=== PATIENT | female | born 1985 ===

== ENCOUNTER 2017-10-07 08:58 | Emergency (ER) | payer MEDICAID ==
[2017-10-07 08:59] VITALS: BMI 30.2
[2017-10-07] MEDS ORDERED: Sodium Chloride 0.9% 1,000 ML IV ONE (09:37)
[2017-10-07] MEDS ORDERED: Sodium Chloride 0.9% 1,000 ML ONE (10:09)
--- NOTE | 2017-10-07 10:09 | C.PDOC ---
History Of Present Illness 32 y/o female with PMHx of Asthma presents to ED with complaints of abdominal pain since 2 am today with associated multiple episodes of vomiting. Patient denies fever, chills, diarrhea, back pain, dysuria, hematuria or any other complaints at this time. Time Seen by Provider: 10/07/17 09:20 Chief Complaint (Nursing): Abdominal Pain History Per: Patient History/Exam Limitations: no limitations Onset/Duration Of Symptoms: Hrs Current Symptoms Are (Timing): Still Present Past Medical History Reviewed: Historical Data, Nursing Documentation, Vital Signs Vital Signs: Last Vital Signs Temp 98.2 F 10/07/17 12:48 Pulse 79 10/07/17 12:48 Resp 16 10/07/17 12:48 BP 129/87 10/07/17 12:48 Pulse Ox 99 10/07/17 12:48 - Medical History PMH: Asthma, Gastritis, Migraine Surgical History: Endoscopy Family History: States: Diabetes, Hypertension - Social History Hx Tobacco Use: No Hx Alcohol Use: No Hx Substance Use: No - Immunization History Hx Tetanus Toxoid Vaccination: Yes Hx Influenza Vaccination: Yes Hx Pneumococcal Vaccination: Yes Review Of Systems Constitutional: Negative for: Fever, Chills Gastrointestinal: Positive for: Vomiting, Abdominal Pain. Negative for: Nausea , Diarrhea Genitourinary: Negative for: Dysuria, Hematuria Musculoskeletal: Negative for: Back Pain Skin: Negative for: Rash Neurological: Negative for: Weakness, Numbness Physical Exam - Physical Exam Appears: Non-toxic, No Acute Distress Skin: Normal Color, Warm, Dry, No Rash Head: Atraumatic, Normacephalic Eye(s): bilateral: Normal Inspection Oral Mucosa: Moist Neck: Supple Cardiovascular: Rhythm Regular Respiratory: Normal Breath Sounds, No Rales, No Rhonchi, No Wheezing Gastrointestinal/Abdominal: Soft, Tenderness (Epigastric), No Guarding, No Rebound Back: No CVA Tenderness Extremity: Normal ROM, Capillary Refill (<2 seconds) Neurological/Psych: Oriented x3 ED Course And Treatment - Laboratory Results Result Diagrams: 10/07/17 10:08 10/07/17 10:08 Lab Interpretation: Normal O2 Sat by Pulse Oximetry: 100 (RA) Pulse Ox Interpretation: Normal - CT Scan/US No standard instances Other Rad Studies (CT/US): Read By Radiologist, Radiology Report Reviewed CT/US Interpretation: FINDINGS: LIVER: Measures 14.5 cm in length. Echogenic liver may be seen in setting of hepatic parenchymal disease or fatty infiltration. No focal hepatic mass identified. The main portal vein appears patent with normal directional flow. No intrahepatic bile duct dilatation. GALLBLADDER: No gallstones. No gallbladder wall thickening or pericholecystic edema. Negative sonographic Faustin's sign as assessed by the glass forming crew member. COMMON BILE DUCT: Measures approximately 2 mm. PANCREAS: Not well- visualized. RIGHT KIDNEY: Measures 11.0 x 5.4 x 6.1 cm. No obstructing calculus or hydronephrosis identified. AORTA: Limited visualization appears grossly unremarkable. IVC: Limited visualization appears grossly unremarkable. OTHER FINDINGS: None . IMPRESSION: Echogenic liver may be seen in setting of hepatic parenchymal disease or fatty infiltration. Progress Note: Treated with IVF NSS, pepcid and zofran. On re-evaluation abdomen soft non-tender, feeling better, in no distress Reassessment Condition: Improved Medical Decision Making Medical Decision Making: Plan: Blood work, UA, Abdomen ultrasound, Zofran Disposition Counseled Patient/Family Regarding: Studies Performed, Diagnosis, Need For Followup, Rx Given - Disposition Referrals: [facility] [Outside] [facility] [Outside] Disposition: HOME/ ROUTINE Disposition Time: 12:30 Condition: STABLE Additional Instructions: Follow up with PMD or clinic for further evaluation Prescriptions: Famotidine [Pepcid AC] 20 mg PO BID #20 tablet Ondansetron ODT [Zofran ODT] 1 odt PO BID PRN #6 odt PRN Reason: Nausea/Vomiting Instructions: Acute Nausea and Vomiting (ED), Abdominal Pain (ED) Forms: [facility] (Portuguese), Work Excuse Print Language: PANAMANIAN - POA Present On Arrival: None - Clinical Impression Clinical Impression: Nausea & vomiting, Gastritis, Abdominal pain - PA / DIRECTOR OF RETAIL / Resident Statement MD/DO has reviewed & agrees with the documentation as recorded. - Scribe Statement The provider has reviewed the documentation as recorded by the John Paul All medical record entries made by the John were at my direction and personally dictated by me. I have reviewed the chart and agree that the record accurately reflects my personal performance of the history, physical exam, medical decision making, and the department course for this patient. I have also personally directed, reviewed, and agree with the discharge instructions and disposition.
[2017-10-07 10:16] LABS: BASO # 0.1 K/uL (0.0-0.2); BASO % 0.8 % (0.0-2.0); EOS # 0.1 K/uL (0.0-0.7); HEMATOCRIT 41.8 % (34.0-47.0); LYMPH # 1.6 K/uL (1.0-4.3); LYMPH % 24.5 % (20.0-40.0); MEAN CELL VOLUME 86.5 fL (81.0-99.0); MEAN CORPUSCULAR HEMOGLOBIN 29.5 pg (27.0-31.0); MEAN CORPUSCULAR HGB CONC 34.1 g/dL (33.0-37.0); MEAN PLATELET VOLUME 8.3 fL (7.2-11.7); MONO # 0.4 K/uL (0.0-0.8); MONO % 6.5 % (0.0-10.0); NRBC % 0.1 % (0.0-2.0); RED CELL DISTRIBUTION WIDTH 12.9 % (11.5-14.5); WHITE BLOOD COUNT 6.6 K/uL (4.8-10.8)
[2017-10-07 10:30] LABS: RBC URINE 9 /hpf (0-3); URINE BILIRUBIN NEGATIVE (NEGATIVE); URINE BLOOD 1+ (NEGATIVE); URINE COLOR Yellow (YELLOW); URINE GLUCOSE (UA) NORMAL (Normal); URINE KETONE NEGATIVE (NEGATIVE); URINE LEUKOCYTE ESTERASE NEG Leu/uL (Negative); URINE PROTEIN NEGATIVE (NEGATIVE); URINE UROBILINOGEN NORMAL mg/dL (0.2-1.0); WBC URINE 2 /hpf (0-5)
[2017-10-07 10:31] LABS: ALB/GLOB RATIO 1.5 (1.0-2.1); ALKALINE PHOSPHATASE 74 U/L (38-126); ALT/SGPT 41 U/L (9-52); AST/SGOT 25 U/L (14-36); BILIRUBIN,TOTAL 0.4 mg/dL (0.2-1.3); BLOOD UREA NITROGEN 9 mg/dL (7-17); CALCIUM 8.5 mg/dl (8.6-10.4); CARBON DIOXIDE 28 mmol/L (22-30); CHLORIDE 104 mmol/L (98-107); GFR AFRICAN-AMERICAN > 60; GLUCOSE,RANDOM 96 mg/dL (65-105); POTASSIUM 4.1 mmol/L (3.6-5.2); SODIUM 137 mmol/L (132-148); TOTAL PROTEIN 6.6 g/dL (6.3-8.3)
--- NOTE | 2017-10-07 11:49 | US ---
HISTORY: Pain RUQ COMPARISON: None available TECHNIQUE: Sonographic evaluation of the right upper quadrant of the abdomen. FINDINGS: LIVER: Measures 14.5 cm in length. Echogenic liver may be seen in setting of hepatic parenchymal disease or fatty infiltration. No focal hepatic mass identified. The main portal vein appears patent with normal directional flow. No intrahepatic bile duct dilatation. GALLBLADDER: No gallstones. No gallbladder wall thickening or pericholecystic edema. Negative sonographic Faustin's sign as assessed by the vice president pharmacy. COMMON BILE DUCT: Measures approximately 2 mm. PANCREAS: Not well-visualized. RIGHT KIDNEY: Measures 11.0 x 5.4 x 6.1 cm. No obstructing calculus or hydronephrosis identified. AORTA: Limited visualization appears grossly unremarkable. IVC: Limited visualization appears grossly unremarkable. OTHER FINDINGS: None . IMPRESSION: Echogenic liver may be seen in setting of hepatic parenchymal disease or fatty infiltration.
[2017-10-07 12:48] VITALS: BP 129/87; PULSE 79; RESP 16; TEMP 98.2
[2017-10-07 17:15] VITALS: O2SAT 100
== END 2017-10-07 13:04 | disposition home or self-care (01) ==
LOC: C.ER 08:58
DX: K29.70 Gastritis, unspecified, without bleeding (principal); R11.2 Nausea with vomiting, unspecified; R10.13 Epigastric pain
CPT/HCPCS: 76705; 80053; 81001; 83690; 84703; 85025; 96361; 96374; 96375; 99284; J2405; J7040

== ENCOUNTER 2018-06-26 15:43 | Emergency (ER) | payer SELFPAY ==
[2018-06-26 15:44] VITALS: BMI 30.2
[2018-06-26 15:52] VITALS: BP 132/74; PULSE 82; RESP 14; TEMP 98.7; O2SAT 99
[2018-06-26] MEDS ORDERED: Tmp-Smz 800 mg-160 mg DS Tab PO STA (16:10)
--- NOTE | 2018-06-26 16:10 | C.PDOC ---
History Of Present Illness 33-year-old female, presents to the emergency department with complaints of a painful pimple to the left side of her face for 5 days. Patient reports trying to pop the pimple 2 days ago and it started swelling up. Patient denies fever, headache, jaw or mouth pain, nausea/vomiting, or any other associated symptoms. Time Seen by Provider: 06/26/18 16:00 Chief Complaint (Nursing): Abnormal Skin Integrity History Per: Patient History/Exam Limitations: no limitations Onset/Duration Of Symptoms: Days Current Symptoms Are (Timing): Still Present Location Of Injury: Left: Face (cheek with pustule) Past Medical History Reviewed: Historical Data, Nursing Documentation, Vital Signs Vital Signs: Last Vital Signs Temp 98.7 F 06/26/18 15:51 Pulse 82 06/26/18 15:51 Resp 14 06/26/18 15:51 BP 132/74 06/26/18 15:51 Pulse Ox 99 06/26/18 17:24 - Medical History PMH: Asthma, Gastritis, Migraine Surgical History: Endoscopy, Tonsillectomy Family History: States: Diabetes, Hypertension - Social History Hx Tobacco Use: No Hx Alcohol Use: No Hx Substance Use: No - Immunization History Hx Tetanus Toxoid Vaccination: No Hx Influenza Vaccination: No Hx Pneumococcal Vaccination: No Review Of Systems Constitutional: Negative for: Fever, Chills Gastrointestinal: Negative for: Nausea, Vomiting Neurological: Negative for: Weakness, Numbness, Headache, Dizziness Physical Exam - Physical Exam Appears: Non-toxic, No Acute Distress Skin: Warm, Dry, No Rash, Other (Left cheek: 1cm tender, erythematous and indurated mass with central scab and no discharge) Head: Atraumatic, Normacephalic Eye(s): bilateral: Normal Inspection, EOMI Nose: Normal Oral Mucosa: Moist Lips: Normal Appearing Neck: Normal ROM Respiratory: No Decreased Breath Sounds, No Accessory Muscle Use Extremity: Normal ROM, No Deformity Neurological/Psych: Oriented x3, Normal Speech Gait: Steady ED Course And Treatment O2 Sat by Pulse Oximetry: 99 Pulse Ox Interpretation: Normal (RA) Medical Decision Making Medical Decision Making: Impression: pustule and developing abscess, not fluctuant or ready for I&D Plan: * Bactrim * Keflex Pt discharged with Rx for Bactrim and Keflex, instructed to apply warm compress to area and keep area clean. Follow up in few days for possible I&D Disposition - Disposition Disposition: HOME/ ROUTINE Disposition Time: 16:09 Condition: GOOD Additional Instructions: Apply warm compress to area Take antibiotics Follow up with your doctor in few days Prescriptions: Cephalexin [cephalexin] 500 mg PO Q12 #14 cap Sulfamethoxazole/Trimethoprim [Bactrim DS 800 mg-160 mg] 1 tab PO BID #14 tab Instructions: Boil (DC) Forms: [employer] (Portuguese) - POA Present On Arrival: None - Clinical Impression Clinical Impression: Abscess of cheek - Scribe Statement The provider has reviewed the documentation as recorded by the Scribe (Pat Carrasquillo) All medical record entries made by the Scribe were at my direction and personally dictated by me. I have reviewed the chart and agree that the record accurately reflects my personal performance of the history, physical exam, medical decision making, and the department course for this patient. I have also personally directed, reviewed, and agree with the discharge instructions and disposition.
[2018-06-26] MEDS ORDERED: Tmp-Smz 800 mg-160 mg DS Tab ONE (16:14)
== END 2018-06-26 16:13 | disposition home or self-care (01) ==
LOC: C.ER 15:43
DX: L02.01 Cutaneous abscess of face (principal)

== ENCOUNTER 2018-06-27 19:09 | Emergency (ER) | payer SELFPAY ==
[2018-06-27 19:09] VITALS: BMI 30.2
[2018-06-27 19:42] VITALS: BP 119/88; PULSE 104; RESP 20; TEMP 98.7; O2SAT 99
[2018-06-27] MEDS ORDERED: Lidocaine Hydrochloride 5 ML INJ ONE (20:19)
[2018-06-27] MEDS ORDERED: Oxycodone/Acetaminophen 5/325 mg Tab PO STA (20:39)
[2018-06-27] MEDS ORDERED: Oxycodone/Acetaminophen 5/325 mg Tab ONE (20:44)
--- NOTE | 2018-06-27 21:04 | C.PDOC ---
History Of Present Illness 33-year-old female, presents to the emergency department with complaints of painful lump to left side of face. Pt seen yesterday for same and discharged with antibiotics. Pt states pain has worsened, prompting visit. No I&D was done. Denies fever, nausea/vomiting. No other complaints at this time. Time Seen by Provider: 06/27/18 20:04 Chief Complaint (Nursing): Abnormal Skin Integrity History Per: Patient History/Exam Limitations: no limitations Onset/Duration Of Symptoms: Days Current Symptoms Are (Timing): Still Present Past Medical History Reviewed: Historical Data, Nursing Documentation, Vital Signs Vital Signs: Last Vital Signs Temp 98.7 F 06/27/18 19:39 Pulse 104 H 06/27/18 19:39 Resp 20 06/27/18 19:39 BP 119/88 06/27/18 19:39 Pulse Ox 99 06/27/18 21:32 - Medical History PMH: Asthma, Gastritis, Migraine Denies: Chronic Kidney Disease Surgical History: Endoscopy, Tonsillectomy Family History: States: Diabetes, Hypertension - Social History Hx Tobacco Use: No Hx Alcohol Use: No Hx Substance Use: No - Immunization History Hx Tetanus Toxoid Vaccination: No Hx Influenza Vaccination: No Hx Pneumococcal Vaccination: No Review Of Systems Constitutional: Negative for: Fever, Chills Gastrointestinal: Negative for: Nausea, Vomiting Skin: Positive for: Other (abscess to left cheek) Physical Exam - Physical Exam Appears: Non-toxic, No Acute Distress Skin: Warm, Dry, Other (Left cheek: 4x 3cm tender, erythematous and indurated/ fluctuant mass with central scab. Not extending below or to mandible. ) Head: Atraumatic, Normacephalic, No Other (trismus) Eye(s): bilateral: Normal Inspection Ear(s): Bilateral: Normal Nose: Normal Oral Mucosa: Moist Lips: Normal Appearing Neck: Normal ROM, No Other (swelling) Extremity: Normal ROM Neurological/Psych: Oriented x3, Normal Speech ED Course And Treatment O2 Sat by Pulse Oximetry: 99 (RA) Pulse Ox Interpretation: Normal Progress Note: Pt remained stable, pain improved. Will continue PO abx prescribed yesterday and ED wound check in 2 days. return precautions d/w pt who expressedunderstanding Reassessment Condition: Improved - Incision & Drainage Of Abscess Anesthesia: Lidocaine 1% Prep Used: Betadine Procedure: Incised W/Scalpel Blade#: (15), Drained Pus, Irrigated Cavity W/ Saline (Pt tolerated well), Probed To Break Up Loculations, Packed W/Gauze Medical Decision Making Medical Decision Making: Plan: * Percocet * Reassess and Disposition Disposition Counseled Patient/Family Regarding: Diagnosis, Need For Followup, Rx Given - Disposition Referrals: Nadira Sanchez [Staff Provider] - Disposition: HOME/ ROUTINE Disposition Time: 21:01 Condition: STABLE Additional Instructions: WOUND CHECK IN 2DAYS IN ED TAKE ALL MEDICATIONS PRESCRIBED DIRECTED RETURN TO ER IF MODERATE FACIAL SWELLING EXTENDING TO LEFT JAW AND NECK, FEVER OR WORSE Instructions: Abscess Incision and Drainage (DC) Forms: [employer] (Turkish) - Clinical Impression Clinical Impression: Facial abscess - Scribe Statement The provider has reviewed the documentation as recorded by the Scribe (Pat Carrasquillo) All medical record entries made by the Scribe were at my direction and personally dictated by me. I have reviewed the chart and agree that the record accurately reflects my personal performance of the history, physical exam, medical decision making, and the department course for this patient. I have also personally directed, reviewed, and agree with the discharge instructions and disposition.
== END 2018-06-27 21:11 | disposition home or self-care (01) ==
LOC: C.ER 19:09
DX: L02.01 Cutaneous abscess of face (principal)

== ENCOUNTER 2018-06-29 19:07 | Emergency (ER) | payer SELFPAY ==
[2018-06-29 19:08] VITALS: BMI 30.2
[2018-06-29 19:23] VITALS: BP 126/89; PULSE 77; RESP 20; TEMP 98.6; O2SAT 98
--- NOTE | 2018-06-29 19:33 | C.PDOC ---
History Of Present Illness 33 year old female presents to the emergency department status-post I&D of a left cheek abscess two days ago. Patient reports taking Bactrim and Keflex for the healing abscess and reports feeling better. Time Seen by Provider: 06/29/18 19:23 Chief Complaint (Nursing): Abnormal Skin Integrity History Per: Patient History/Exam Limitations: no limitations Onset/Duration Of Symptoms: Days (2) Current Symptoms Are (Timing): Still Present Location Of Injury: Left: Face Past Medical History Reviewed: Historical Data, Nursing Documentation, Vital Signs Vital Signs: Last Vital Signs Temp 98.6 F 06/29/18 19:20 Pulse 77 06/29/18 19:20 Resp 20 06/29/18 19:20 BP 126/89 06/29/18 19:20 Pulse Ox 98 06/29/18 22:11 - Medical History PMH: Asthma, Gastritis, Migraine Denies: Chronic Kidney Disease Surgical History: Endoscopy, Tonsillectomy Family History: States: Diabetes, Hypertension - Social History Hx Tobacco Use: No Hx Alcohol Use: No Hx Substance Use: No - Immunization History Hx Tetanus Toxoid Vaccination: No Hx Influenza Vaccination: No Hx Pneumococcal Vaccination: No Review Of Systems Except As Marked, All Systems Reviewed And Found Negative. Constitutional: Negative for: Fever, Chills Skin: Positive for: Other (healing abscess) Physical Exam - Physical Exam Appears: Non-toxic, No Acute Distress Skin: Warm, Dry, Other (healing abscess with packing in place present to the left cheek. No surrounding erythema. ) Head: Atraumatic, Normacephalic Eye(s): bilateral: Normal Inspection Neck: Normal, Supple Chest: Symmetrical Cardiovascular: Rhythm Regular, No Murmur Respiratory: Normal Breath Sounds, No Rales, No Rhonchi, No Wheezing Neurological/Psych: Oriented x3, Normal Speech, Normal Cognition ED Course And Treatment O2 Sat by Pulse Oximetry: 98 (RA) Pulse Ox Interpretation: Normal Progress Note: Packing removed, abscess cavity irrigated with saline. No pirulent discharge was noted. Patient is clear for discharge. Disposition - Disposition Referrals: Deja Padilla MD [Staff Provider] - Disposition: HOME/ ROUTINE Disposition Time: 19:32 Condition: STABLE Additional Instructions: Follow up with applications specialist within 1-2 days. Return to ED if feel worse. Instructions: Wound Care Forms: [employer] (Spanish) - Clinical Impression Clinical Impression: Wound check, abscess - PA / STONEWORKING BELT SANDER / Resident Statement MD/DO has reviewed & agrees with the documentation as recorded. - Scribe Statement The provider has reviewed the documentation as recorded by the Scribe (Boris Garcia) All medical record entries made by the Scribe were at my direction and personally dictated by me. I have reviewed the chart and agree that the record accurately reflects my personal performance of the history, physical exam, medical decision making, and the department course for this patient. I have also personally directed, reviewed, and agree with the discharge instructions and disposition.
== END 2018-06-29 20:01 | disposition home or self-care (01) ==
LOC: C.ER 19:07
DX: Z48.00 Encounter for change or removal of nonsurgical wound dressing (principal); L02.01 Cutaneous abscess of face